=== PATIENT | female | born 1975 | race Caucasian/White ===

== ENCOUNTER 2018-03-01 13:15 | Emergency (ER) | payer BC ==
[2018-03-01 13:29] VITALS: BP 158/86
--- NOTE | 2018-03-01 14:08 | ED Physician Documentation ---
History of Present Illness - Stated complaint Stated Complaint: LEFT EAR PX - Chief complaint Chief Complaint: Heent - History obtained from History obtained from: Patient - History of Present Illness Timing: How many days ago (3) Pain level max: 5 Pain level now: 3 - Additonal information Additional information: 43-year-old female visiting from [place], states that she was on the plane when she developed left ear pain. This is an ongoing issue for her. She felt a pop with some drainage from the ear and now has decreased hearing out of the ear. No rhinorrhea, congestion or sore throat. No fevers. Nothing makes it better or worse. 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 : None HEENT: None Psych: None Musculoskeletal: None Derm: None - Past Surgical History Past Surgical History: Yes /CLOTH FOLDER HAND: Dilation and currettage HEENT: Other - Present Medications Home Medications: Ambulatory Orders Medication Instructions Recorded Confirmed Amox/Clav 875/125 [Augmentin] 1 each PO Q12H #20 tablet 03/01/18 - Social History Does the pt smoke?: No Smoking Status: Never smoker Does the pt drink ETOH?: Yes ETOH Use: Wine Does the pt have substance abuse?: No - Immunizations Immunizations are current?: Yes - POLST Patient has POLST: No PD ED PE NORMAL - Vitals Vital signs reviewed: Yes - General General: Alert and oriented X 3, No acute distress - HEENT HEENT: Moist mucous membranes, Pharynx benign, Other (Right TM is normal. Left TM is erythematous, dull, retracted with purulent fluid. There may be a small perforation. Unable to fully visualize the TM) - Neck Neck: Supple, no meningeal sign - Cardiac Cardiac: RRR - Respiratory Respiratory: No respiratory distress, Clear bilaterally - Derm Derm: Warm and dry - Neuro Neuro: Alert and oriented X 3 Results - Vitals Vitals: Vital Signs - 24 hr 03/01/18 13:27 Temperature 36.8 C Heart Rate 86 Respiratory 18 Rate Blood Pressure 158/86 H O2 Saturation 99 Oxygen O2 Source Room air PD MEDICAL DECISION MAKING - ED course Complexity details: considered differential, d/w patient ED course: 43-year-old female with a left acute otitis media with possible perforation. Will place on antibiotics for this. She is well-appearing, nontoxic. Afebrile. Patient counseled regarding signs and symptoms for which I believe and urgent re-evaluation would be necessary. Patient with good understanding of and agreement to plan and is comfortable going home at this time This document was made in part using voice recognition software. While efforts are made to proofread this document, sound alike and grammatical errors may occur. Departure - Departure Disposition: 01 Home, Self Care Clinical Impression: Left acute otitis media Condition: Good Instructions: ED Otitis Media Acute Adult Follow-Up: your,doctor in 1week [Other] Prescriptions: Amox/Clav 875/125 [Augmentin] 1 each PO Q12H #20 tablet Comments: Take all antibiotics until gone. Return if you worsen. There may be a perforation in your eardrum that will need to be reevaluated once the infection has cleared. Discharge Date/Time: 03/01/18 14:12
== END 2018-03-01 14:12 | disposition home or self-care (01) ==
LOC: ED 13:15
DX: H66.92 Otitis media, unspecified, left ear (principal)
CPT/HCPCS: 99283